=== PATIENT | male | born 1990 | race Caucasian/White ===

== ENCOUNTER 2018-05-14 19:04 | Inpatient (IN) ==
[2018-05-14] MEDS ORDERED: Acetaminophen 325 MG Tablet PO PRN (21:35)
[2018-05-14] MEDS ORDERED: Aluminum/Magnesium/Simethacone Susp 30 ML UDC PO PRN (21:35)
[2018-05-14] MEDS ORDERED: LORazepam 1 MG Tablet PO PRN (21:51)
[2018-05-15 07:49] LABS: Carbon Dioxide 30.8 meq/L (21.0-32.0); Potassium 4.2 meq/L (3.5-5.1)
[2018-05-15 07:53] LABS: Chol/HDL Ratio 2.64 Ratio; HDL Cholesterol 49.5 mg/dL (40.0-60.0)
[2018-05-15 08:45] LABS: Albumin 3.5 g/dL (3.4-5.0)
[2018-05-15 08:47] LABS: Total Protein 7.1 g/dL (6.4-8.2)
[2018-05-15] MEDS ORDERED: traZODone 50 MG Tablet PO PRN (11:00)
--- NOTE | 2018-05-15 11:12 | P.HPPSY ---
Provisional Diagnosis Admission Date: May 14, 2018 20:20 [place] I.: 1. Major depressive disorder, recurrent, moderate 2. Alcohol use disorder, moderate [place] II.: Deferred Competence Certification of Person's Competence To Provide Express and Informed Consent I have personally examined Tom Vasquez, a person being served at [facility] on, May 15, 2018 1101. Express and informed consent means consent voluntarily given in writing, by a competent person, after sufficient explanation and disclosure of the subject matter involved to enable the person to make a knowing and willful decision without any element of force, fraud, deceit, duress, or other form of constraint or coercion. This person is 18 years of age or older, is not now known to be incompetent to consent to treatment with a guardian advocate, and does not have a health care surrogate or proxy currently making medical treatment decisions. I have found this person to be one of the following: [X] Competent to provide express and informed consent, as defined above, for voluntary admission to this facility and is competent to provide express and informed consent for treatment. He/she has the consistent capacity to make well reasoned, willful, and knowing decisions concerning his or her medical or mental health treatment. The person fully and consistently understands the purpose of the admission for examination/placement and is fully capable of personally exercising all rights assured [place] [] Incompetent to provide express and informed consent to voluntary admission, and this is incompetent to provide express and informed consent to treatment. The person must be transferred to involuntary status and a petition for a guardian advocate filed with the Circuit Court. [] Refusing to provide express and informed consent to voluntary admission but is competent to provide express and informed consent for treatment. The person must be discharged or transferred to involuntary status. Form shall be completed within 24 hours of a person's arrival at the receiving facility and filed in the clinical record of each person: 1. Admitted on a voluntary basis 2. Permitted to provide express and informed consent to his/her own treatment 3. Allowed to transfer from involuntary to voluntary status 4. Prior to permitting a person to consent to his or her own treatment after having been previously found incompetent to consent to treatment. History of Present Illness Capacity: Has capacity Chief Complaint: Overdose History of Present Illness: Mr. Vasquez is a 27-year-old male with a history of depression, possible bipolar disorder, possible borderline personality style who presents in transfer from [facility] under a Vasquez act. Documentation from outside hospital reviewed. Patient presented there following Tylenol overdose in the setting of alcohol intoxication. Alcohol level at outside hospital was 175. Peak Tylenol level appears to have been 33. Reviewing our electronic medical record, I see no previous psychiatric contact within our system. Patient seen and examined with counselor and nurse. Chart reviewed. Case discussed with nursing staff. No behavioral issues noted overnight. On my examination today, the patient says that he was "incredibly intoxicated" when he made his presenting overdose. He says that he was stood up for a date on Monday afternoon and decided "I'm gonna go drink." He impulsively overdosed on about 20 x 500mg Tylenol tablets. Although his recollection of the incident is a little hazy, he believes that he did so with suicidal intent. He denies any ongoing suicidal ideation, intent or plan now saying that he does not want to hurt his friends and family. He admits to having felt depressed for the last several months. He endorses increasing social withdrawal and says that this is exacerbated by his new job, which is fairly solitary. He appears anhedonic and is tearful at times, especially when he discusses his drinking. Onset of low mood and increased drinking appears to coincide with the anniversary of the of a friend who a few years ago. Although the patient reports a historical diagnosis of bipolar disorder, I can elicit no history consistent with fernando alicia episodes of hypomania or kaylin. Instead, the patient seems to describe periodic euthymia in the setting of a generally dysphoric mood state. He denies any audiovisual hallucinations. I can elicit no delusional material. There is no evidence of impairment in reality construction. The remainder of the psychiatric ROS is negative. No acute physical complaints. Past psychiatric history: The patient reports previous diagnoses as noted above. He is not under the care of a psychiatrist. He was hospitalized as a child at [facility] after he engaged in nonsuicidal self-injurious behavior , namely cutting. He denies any recent NSSIB. He denies a history of suicide attempts. He does note that Prozac was quite helpful in the past for episodes of depression. Family history: The patient reports depression in siblings. He denies any family history of suicide. Chemical dependency history: Patient reports that he had been sober from alcohol for 2 years before relapsing in the spring of this year. He drinks anywhere between 1/4 and 1 x 750mL bottle of whiskey daily. He denies any history of DTs or seizures. He has never attended rehab, nor has he pursued 12 step programming. He is not interested in chemical dependency treatment presently saying that he will simply stop drinking. He notes that his last drink was about 5 days ago. He denies any other substance use. Social history: The patient lives with a female roommate. He is single with no children. 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 He denies any history. Denies any legal history. Denies any access to guns or firearms. Denies any quaker or spiritual beliefs. Denies any history of trauma. Past medical history: The patient denies any history of medical problems. Medications: Patient takes no home medications. Allergies: Patient reports no known allergies. - Inpatient Certification I certify that the inpatient services were ordered in accordance with Medicare regulations governing the order. This includes certification that hospital inpatient services are reasonable and necessary and in the case of services not specified as inpatient-only under 42 CFR 419.22(n), that they are appropriately provided as inpatient services in accordance to with the 2-midnight benchmark under 43 CFR 412.3(e) I certify that inpatient psychiatric hospital services are medically necessary. Evaluation and treatment and/or diagnostic testing are expected to improve the patient's condition. The patient needs on a daily basis, active treatment furnished directly by or requiring the supervision of inpatient psychiatric facility personnel. Estimated Total Length of Stay (Days): 5 (3-5) Plans for Post Hospital Care: Home Review of Systems All other systems reviewed negative except as stated in HPI PMFSH - History History Provided By: Patient - Tobacco History Second Hand Smoke Exposure: No Tobacco Use In Past 30 Days: Yes Smoking Status: Current every day smoker Tobacco Type: Cigarettes - Alcohol History How Often Do You Have a Drink Containing Alcohol: 4 or more times a week - Substance Use History Substance History: Active Abuse - Travel History Recent Travel in the [place] Within the Last 8 Weeks: No Recent Travel Out of the Country Within the Last 8 Weeks: No - Immunization History Tetanus Immunization: <5 Years Hx Influenza Vaccine This Season: No Quality Measures - Patient Strengths Patient's strengths (minimum of 2): In a monitored setting. Verbally fluent. Medications and Allergies Active Medications: Active Medications Acetaminophen (Tylenol) 650 mg PO Q4H PRN PRN Reason: Pain 1-5 or Temp >101F Al Hydrox/Mg Hydrox/Simethicone (Mag-Al Plus Susp Liq) 30 ml PO Q6H PRN PRN Reason: DYSPEPSIA Al Hydroxide/Mg Hydroxide (Milk Of Magnesia Liq) 30 ml PO DAILY PRN PRN Reason: CONSTIPATION Flumazenil (Romazecon Inj) 0.2 mg IV.PUSH Q1M PRN PRN Reason: OVERSEDATION Lorazepam (Ativan) 1 mg PO Q4H PRN PRN Reason: for CIWA 8-10 Lorazepam (Ativan) 2 mg PO Q2H PRN PRN Reason: for CIWA 11-14 Lorazepam (Ativan Inj) 2 mg IV.PUSH Q2H PRN PRN Reason: for CIWA 11-14 Lorazepam (Ativan Inj) 2 mg IV.PUSH Q1H PRN PRN Reason: for CIWA 15-20 Lorazepam (Ativan Inj) 2 mg IV.PUSH Q15M PRN PRN Reason: for CIWA > 20 Lorazepam (Ativan Inj) 1 mg IV.PUSH Q4H PRN PRN Reason: for CIWA 8-10 Nicotine (Habitrol 21 Mg Patch.24 Hr) 1 patch T-DERMAL DAILY RIZWANA Patch Removal (Remove Old Patch) 1 each T-DERMAL HS [facility] Allergies Allergy/AdvReac Type Severity Reaction Status Date / Time No Known Allergies Allergy Unverified 05/14/18 21:01 Results - Labs CBC & Chem 7: 05/15/18 06:30 Labs: Laboratory Results - last 24 hr 05/15/18 05/15/18 05/15/18 06:30 06:30 06:30 Hemoglobin A Cancelled Hemoglobin A2 Cancelled Hemoglobin F () Cancelled Hgb A2/F Interpret Cancelled Hemoglobin Variant 2 Cancelled Hemoglobin Variant 3 Cancelled Hemoglobin Variant % Cancelled Sodium 141 Potassium 4.2 Chloride 105 Carbon Dioxide 30.8 Anion Gap 5 BUN 14 Creatinine 1.18 Estimated GFR 73 L Random Glucose 85 Calcium 9.0 Total Bilirubin Direct Bilirubin Indirect Bilirubin AST ALT Alkaline Phosphatase Total Protein Albumin Triglycerides 141 Cholesterol 131 LDL Cholesterol, Calc 53 HDL Cholesterol 49.5 Cholesterol/HDL Ratio 2.64 05/15/18 06:30 Hemoglobin A Hemoglobin A2 Hemoglobin F () Hgb A2/F Interpret Hemoglobin Variant 2 Hemoglobin Variant 3 Hemoglobin Variant % Sodium Potassium Chloride Carbon Dioxide Anion Gap BUN Creatinine Estimated GFR Random Glucose Calcium Total Bilirubin 0.5 Direct Bilirubin 0.1 Indirect Bilirubin 0.4 AST 15 ALT 23 Alkaline Phosphatase 126 H Total Protein 7.1 Albumin 3.5 Triglycerides Cholesterol LDL Cholesterol, Calc HDL Cholesterol Cholesterol/HDL Ratio Laboratories from outside hospital reviewed. The patient did have a mild leukocytosis at outside hospital. Alcohol level was elevated as noted above. Tylenol level initially elevated as noted above. Exam Vital signs: Vital Signs 05/14/18 22:12 05/15/18 06:03 Temperature 98.4 F 98.2 F Pulse Rate 65 64 Respiratory Rate 18 17 Blood Pressure 145/89 H 140/76 Pulse Oximetry 97 99 Intake & Output 05/14/18 05/15/18 05/15/18 18:59 06:59 18:59 Weight 126.8 kg Other: Weight On Admission 126.8 kg Narrative: Physical examination was completed at referring hospital. On my examination today, the patient appears to be in no acute physical distress. No motor abnormalities noted. No signs of intoxication or withdrawal noted. Labs and vital signs reviewed: Mental Status Examination Appearance: Appropriate Consciousness: Alert Orientation: x4 Motor Activity: Normal gait Speech: Unremarkable Language: Adequate Fund of Knowledge: Adequate Attention and Concentration: Adequate Memory: Unremarkable (Grossly intact on clinical exam) Mood: Other (Depressed) Affect: Other (Restricted, tearful at times) Thought Process & Associations: Intact, Logical, Goal directed, Linear Thought Content: Appropriate Hallucination Type: None Delusion Type: None Suicidal Ideation: No Suicidal Plan: No Suicidal Intention: No Homicidal Ideation: No Homicidal Plan: No Homicidal Intention: No Insight: Fair Judgment: Impulsive Assessment and Plan - Assessment (1) Major depressive disorder, recurrent, moderate Code(s): F33.1 - Major depressive disorder, recurrent, moderate Status: Acute (2) Alcohol use disorder, moderate, dependence Code(s): F10.20 - Alcohol dependence, uncomplicated Status: Acute - Plan Plan: 27-year-old male with psychiatric history as detailed above who presents in transfer from outside hospital under a Vasquez act. On my examination today, the patient reports that his presenting overdose was impulsive in the setting of alcohol intoxication. He denies ongoing suicidal ideation at this time but does admit to depressive symptoms for several months. Patient is to be considered an ongoing potential risk for self-harm on account of this depressive symptomatology. The patient's alcohol use is also a risk factor for self-harm. Although he declines chemical dependency treatment at this time, this ought to be revisited as patient's alcohol use is likely his greatest modifiable risk factor for self-harm after the depression itself. Patient requires psychiatric hospitalization at this time for safety, observation and stabilization. Admit inpatient. Transfer to 2600 unit as patient's condition and behavior is most appropriate for that unit. Voluntary status. Initiate Prozac 20 mg daily for management of low mood. Atarax as needed for anxiety. Trazodone as needed for sleep. Continue CIWA scale with Ativan for the management of any withdrawal , although my suspicion for clinically significant withdrawal is lower at this point given the timing of last alcohol use. R/B/A for medications discussed with patient. In particular we discussed the potential for headache and GI upset and also the possibility of sexual side effects with SSRIs. Vitals every shift. Counselor to see. Disposition planning. Estimated length of stay: 3-5 days. Justification for Continued Inpatient Stay: Medication changes. Monitoring for impairment in safety. High risk for decompensation in less restrictive environment. Discharge Planning: Pending psychiatric stabilization. Request Healthcare Surrogate/Guardian Advocate?: No
[2018-05-15] MEDS: FLUoxetine 20 MG Capsule PO SCH (11:31)
[2018-05-15 12:44] LABS: Baso # (Auto) 0.1 th/mm3 (0.0-0.2); Baso % (Auto) 0.6 % (0.0-2.0); Eos # (Auto) 0.1 th/mm3 (0.0-0.4); Eos % (Auto) 1.1 % (0.0-4.0); Hematocrit 44.9 % (39.0-51.0); Hemoglobin 15.7 gm/dL (13.0-17.0); Lymph # (Auto) 1.6 th/mm3 (1.0-4.8); Lymph % (Auto) 15.4 % (9.0-44.0); Mean Corpuscular Hemoglobin 33.1 pg (27.0-34.0); Mean Corpuscular Volume 94.7 fL (80.0-100.0); Mean Platelet Volume 8.7 fL (7.0-11.0); Mono # (Auto) 1.1 th/mm3 (0.0-0.9); Mono % (Auto) 10.6 % (0.0-8.0); Neut # (Auto) 7.6 th/mm3 (1.8-7.7); Neut % (Auto) 72.3 % (16.0-70.0); Platelet Count 205 th/mm3 (150-450); Red Blood Count 4.74 mil/mm3 (4.50-5.90); Red Cell Distribution Width 15.2 % (11.6-17.2); White Blood Count 10.5 th/mm3 (4.0-11.0)
[2018-05-15 18:14] LABS: Hemoglobin A1c 4.8 % (4.3-6.0)
[2018-05-16] MEDS: FLUoxetine 20 MG Capsule PO SCH (09:45)
--- NOTE | 2018-05-16 12:45 | P.PNPSY ---
Subjective Chief Complaint: Overdose Remarks: Patient seen and examined with nurse. Chart reviewed. Case discussed with nursing staff. No behavioral issues noted overnight. On my exam today, patient reports mood is improving. He denies SI/HI. Reports that he slept well overnight. Looking forward to going to the beach and returning to work. Reports that his roommate visited last night. Reports that roommate has disposed of all of the alcohol in the home. Denies side effects from medications. No physical complaints. Hopeful for discharge soon. Patient has signed MEKA for roommate Le Nunez ([phone]) and mother Payal Vasquez ([phone]). I have called both for collateral and left generic VM requesting a call back. I did try to call Ms. Vasquez again as audio visual secretary reported she had called in, but answered and reported she was napping. We do not have MEKA for . He will have her call back when she awakens. Vital Signs Temp Pulse Resp BP Pulse Ox 05/16/18 06:00 98.2 F 78 16 122/59 L 98 05/15/18 17:47 97.7 F 70 18 151/96 H 98 Intake and Output 05/15/18 05/16/18 05/16/18 22:59 06:59 14:59 Intake Total 240 / 240 Balance 240 / 240 Intake: Oral 240 / 240 Laboratory Results - last 24 hr 05/15/18 05/15/18 05/15/18 06:30 06:30 06:30 WBC 10.5 RBC 4.74 Hgb 15.7 Hct 44.9 MCV 94.7 MCH 33.1 MCHC 35.0 RDW 15.2 Plt Count 205 MPV 8.7 Neut % (Auto) 72.3 H Lymph % (Auto) 15.4 [place] % (Auto) 10.6 H Eos % (Auto) 1.1 Baso % (Auto) 0.6 Neut # (Auto) 7.6 Lymph # (Auto) 1.6 [place] # (Auto) 1.1 H Eos # (Auto) 0.1 Baso # (Auto) 0.1 WBC Differential . Differential Comment Auto diff final Hemoglobin A1c 4.8 TSH 0.838 Labs reviewed. CBC unremarkable. TSH wnl. Review of Systems All other systems reviewed negative except as stated in HPI Mental Status Examination Appearance: Appropriate Consciousness: Alert Orientation: x4 Motor Activity: Normal gait, Other (No signs of withdrawal noted. No other motor abnormalities noted.) Speech: Unremarkable Language: Adequate Fund of Knowledge: Adequate Attention and Concentration: Adequate Memory: Unremarkable (Remains grossly intact on clinical exam) Mood: Other (Improving) Affect: Other (More full and reactive today) Thought Process & Associations: Intact, Logical, Goal directed, Linear Thought Content: Appropriate Hallucination Type: None Delusion Type: None Suicidal Ideation: No Suicidal Plan: No Suicidal Intention: No Homicidal Ideation: No Homicidal Plan: No Homicidal Intention: No Insight: Fair Judgment: Impulsive Assessment and Plan - Assessment (1) Major depressive disorder, recurrent, moderate Code(s): F33.1 - Major depressive disorder, recurrent, moderate Status: Acute (2) Alcohol use disorder, moderate, dependence Code(s): F10.20 - Alcohol dependence, uncomplicated Status: Acute - Plan Plan: Continue Prozac as ordered. Continue to monitor on the inpatient unit. Continue other medications and care as ordered. Justification for Continued Inpatient Stay: Monitoring for ongoing impairment in safety. Discharge Planning: If collateral information can be obtained, to consider discharge in the next 1- 2 days. Request Healthcare Surrogate/Guardian Advocate?: No
[2018-05-17] MEDS: FLUoxetine 20 MG Capsule PO SCH (08:33)
--- NOTE | 2018-05-17 18:35 | P.DSPSY ---
Psychiatry Discharge Summary Inpatient Psychiatric care?: Yes Advance Directives: No Mental Health Advance Directive: No Health Care Proxy: No - Admission Admission Date: May 14, 2018 20:20 - Admission Diagnosis (1) Major depressive disorder, recurrent, moderate Code(s): F33.1 - Major depressive disorder, recurrent, moderate (2) Alcohol use disorder, moderate, dependence Code(s): F10.20 - Alcohol dependence, uncomplicated Brief History: Mr. Vasquez is a 27-year-old male with a history of depression, possible bipolar disorder, possible borderline personality style who presents in transfer from [facility] under a Vasquez act. Documentation from outside hospital reviewed. Patient presented there following Tylenol overdose in the setting of alcohol intoxication. Alcohol level at outside hospital was 175. Peak Tylenol level appears to have been 33. Reviewing our electronic medical record, I see no previous psychiatric contact within our system. Patient seen and examined with counselor and nurse. Chart reviewed. Case discussed with nursing staff. No behavioral issues noted overnight. On my examination today, the patient says that he was "incredibly intoxicated" when he made his presenting overdose. He says that he was stood up for a date on Monday afternoon and decided "I'm gonna go drink." He impulsively overdosed on about 20 x 500mg Tylenol tablets. Although his recollection of the incident is a little hazy, he believes that he did so with suicidal intent. He denies any ongoing suicidal ideation, intent or plan now saying that he does not want to hurt his friends and family. He admits to having felt depressed for the last several months. He endorses increasing social withdrawal and says that this is exacerbated by his new job, which is fairly solitary. He appears anhedonic and is tearful at times, especially when he discusses his drinking. Onset of low mood and increased drinking appears to coincide with the anniversary of the of a friend who a few years ago. Although the patient reports a historical diagnosis of bipolar disorder, I can elicit no history consistent with fernando alicia episodes of hypomania or kaylin. Instead, the patient seems to describe periodic euthymia in the setting of a generally dysphoric mood state. He denies any audiovisual hallucinations. I can elicit no delusional material. There is no evidence of impairment in reality construction. The remainder of the psychiatric ROS is negative. No acute physical complaints. Past psychiatric history: The patient reports previous diagnoses as noted above. He is not under the care of a psychiatrist. He was hospitalized as a child at [facility] after he engaged in nonsuicidal self-injurious behavior , namely cutting. He denies any recent NSSIB. He denies a history of suicide attempts. He does note that Prozac was quite helpful in the past for episodes of depression. Family history: The patient reports depression in siblings. He denies any family history of suicide. Chemical dependency history: Patient reports that he had been sober from alcohol for 2 years before relapsing in the spring of this year. He drinks anywhere between 1/4 and 1 x 750mL bottle of whiskey daily. He denies any history of DTs or seizures. He has never attended rehab, nor has he pursued 12 step programming. He is not interested in chemical dependency treatment presently saying that he will simply stop drinking. He notes that his last drink was about 5 days ago. He denies any other substance use. Social history: The patient lives with a female roommate. He is single with no children. 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 He denies any history. Denies any legal history. Denies any access to guns or firearms. Denies any samaritan or spiritual beliefs. Denies any history of trauma. Past medical history: The patient denies any history of medical problems. Medications: Patient takes no home medications. Allergies: Patient reports no known allergies. Tobacco Use In Past 30 Days: Yes How Often Do You Have a Drink Containing Alcohol: 4 or more times a week Hospital Course: Mr. Vasquez is a 27-year-old male with a history of depression, possible bipolar disorder, possible borderline personality style who presents in transfer from [facility] under a Vasquez act after presented there following Tylenol overdose in the setting of alcohol intoxication which was transferred to the inpatient psychiatry for further evaluation and management. Patient started on fluoxetine 20mg daily, which he tolerated well with no notable adverse drug reactions. Patient was kept under [facility] protocol but did not show any signs of withdrawal. Patient was noted with improvement in mood, noted to have denied having any suicidal or homicidal ideations since admission. He was observed by staff to not have had any behavioral disturbances, noted not having made any suicidal or homicidal statements nor endorsed any perceptual disturbances and maintained stable mood throughout admission and was noted to participate with staff adequately. Patient was noted to participate in self care, engaging with staff and maintaining adequate hygiene. Patient reported feeling more hopeful, future oriented and motivated to consider engaging in rehabilitation program for alcohol use along with plans to continue with outpatient follow up. Treatment team was able to set up outpatient follow up appointments which the patient can continue current medication regimen. Upon discharge patient stated that feeling good, reported feeling well with the treatment, as well as motivation to continue recommendations and denied any SI, HI, perceptual disturbances or delusions. Weighing the acute, chronic, and protective factors and based on the available evidence, I electromechanical assembly technician to a reasonable degree of medical certainty that the patient is at low imminent risk of harm to self or others from a mental illness as defined under the Vasquez act and level of function is adequate as observed on the unit for planned level of outpatient care. - Discharge Discharge Date: 05/17/18 - Discharge Diagnosis (1) Major depressive disorder, recurrent, moderate Code(s): F33.1 - Major depressive disorder, recurrent, moderate Status: Acute (2) Alcohol use disorder, moderate, dependence Code(s): F10.20 - Alcohol dependence, uncomplicated Status: Acute Discharge Disposition: Home - Discharge Instructions Discharge Diet: Heart Healthy Diet Activities You Can Perform: Regular- No Restrictions - Discharge Time > 30 minutes Mental Status Examination Appearance: Appropriate Consciousness: Alert Orientation: x4 Motor Activity: Normal gait, Other (No signs of withdrawal noted. No other motor abnormalities noted.) Speech: Unremarkable Language: Adequate Fund of Knowledge: Adequate Attention and Concentration: Adequate Memory: Unremarkable (Remains grossly intact on clinical exam) Mood: Appropriate Affect: Appropriate Thought Process & Associations: Intact, Logical, Goal directed, Linear Thought Content: Appropriate Hallucination Type: None Delusion Type: None Suicidal Ideation: No Suicidal Plan: No Suicidal Intention: No Homicidal Ideation: No Homicidal Plan: No Homicidal Intention: No Insight: Fair Judgment: Impulsive Discharge/Advance Care Plan - Results Vital Signs: Last Vital Signs Temp 98.0 F 05/17/18 06:00 Pulse 54 L 05/17/18 06:00 Resp 18 05/17/18 06:00 BP 132/77 05/17/18 06:00 Pulse Ox 97 05/17/18 06:00 Lab Results: Laboratory Results Hemoglobin A1c 4.8 % (4.3-6.0) 05/15/18 06:30 Triglycerides 141 mg/dL (42-150) 05/15/18 06:30 Cholesterol 131 mg/dL (120-200) 05/15/18 06:30 LDL Cholesterol, Calc 53 mg/dL (0-99) 05/15/18 06:30 HDL Cholesterol 49.5 mg/dL (40.0-60.0) 05/15/18 06:30 TSH 0.838 uIU/mL (0.358-3.740) 05/15/18 06:30 Summary of Procedures: none Pending Results: None - Medications Number of antipsychotic medications at discharge: 0 - Discharge Care Plan Goals to Promote Your Health: * To prevent worsening of your condition and complications * To maintain your health at the optimal level Directions to Meet Your Goals: Take your medications as prescribed Follow your dietary instruction Follow activity as directed Keep your appointments as scheduled Take your immunizations and boosters as scheduled If your symptoms worsen call your PCP, if no PCP go to Urgent Care Center or Emergency Room For 08/05 questions related to your inpatient stay or results of tests pending at discharge, please contact Dr. Leonardo Jackson MD at Smoking is Dangerous to Your Health. Avoid second hand smoking
== END 2018-05-17 19:30 | disposition home or self-care (01) ==
LOC: H270 20:20 → H260 05-15 12:35
PROVIDERS: ADMIT Psychiatry & Neurology Psychiatry; ATTEND Psychiatry & Neurology Psychiatry
CPT/HCPCS: 80048; 80061; 80076; 83036; 84443; 85025